=== PATIENT | male | born 1970 | race Caucasian/White ===

== ENCOUNTER 2016-11-26 08:24 | Outpatient (CLI) | payer OTHER ==
[2016-11-26 08:48] LABS: Bilirubin Negative (Negative); Blood, Urine Trace (Negative); Glucose, Urine (Dipstick) Negative (Negative); Leukocyte Negative (Negative); Nitrite Negative (Negative); Protein, Urine (Dipstick) 100 mg/dL (Neg-Trace); Specific Gravity, Urine 1.025 (1.005-1.030)
[2016-11-26 09:04] LABS: Clarity Hazy (Clear)
[2016-11-26 09:05] LABS: Squamous Epithelial 0-3 HPF (0-3)
[2016-11-26 09:06] LABS: Bacteria/HPF Rare-Few HPF (None Seen); Sperm/HPF 3+ HPF (None Seen)
[2016-11-26 09:08] LABS: #Basophils 0.1 thou/uL (0.0-0.2); #Eosinphils 0.5 thou/uL (0.0-0.7); #Monocytes 0.7 thou/uL (0.11-0.59); #Neutrophils 4.9 thou/uL (1.40-6.50); %Basophils 1.6 % (0.0-1.0); %Eosinophils 5.1 % (0.0-10.0); %Lymphocytes 32.5 % (21.0-51.0); %Monocytes 7.8 % (0.0-10.0); Hemoglobin 15.3 g/dL (14.0-18.0); Mean Corpuscular HGB CONC 32.8 g/dL (32.0-36.0); Mean Corpuscular Hemoglobin 28.7 pg (27.0-31.0); Mean Corpuscular Volume 87.6 fl (80.0-94.0); Mean Platelet Volume 7.2 fL (7.4-10.4); Platelet Count 361 thou/uL (130-400); RBC Distribution Width 13.7 % (11.5-14.5); Red Blood Cell (RBC) Count 5.34 mill/uL (4.70-6.10); White Blood Cell (WBC) Count 9.3 thou/uL (4.8-10.8)
[2016-11-26 11:11] LABS: ALT (SGPT) 20 U/L (0-55); AST (SGOT) 17 U/L (5-34); Alkaline Phosphatase 81 U/L (40-150); Anion Gap 12 mmol/L (10-20); BUN (Urea Nitrogen) 11 mg/dL (8.9-20.6); Bilirubin, Total 0.5 mg/dL (0.2-1.2); Calc. Creatinine Clearance 0 mL/min (70-130); Calcium 9.1 mg/dL (7.8-10.44); Carbon Dioxide 26 mmol/L (22-29); Cardiac Risk 5.4 (Less than 4.5); Chloride 107 mmol/L (98-107); Cholesterol 157 mg/dL (< 200 Desired); Estimated GFR-MDRD 77; Globulin 2.4 g/dL (2.4-3.5); Glucose 97 mg/dL (70-105); HDL Cholesterol 29 mg/dL (>60 Neg Risk); LDL Cholesterol, Calculated 110 mg/dL; Potassium 3.7 mmol/L (3.5-5.1); Protein, Total 6.4 g/dL (6.0-8.3); Sodium 141 mmol/L (136-145); Triglycerides 92 mg/dL (Less than 150)
[2016-11-26 16:25] LABS: Iron 104 ug/dL (65-175); Iron Binding Capacity, Total 431 mcg/dL (261-462)
[2016-11-26 16:25] LABS: Reticulocyte Count 1.2 % (0.5-1.5)
== END 2016-11-26 08:25 | disposition home or self-care (01) ==
LOC: MADLAB 08:24
PROVIDERS: ATTEND Family Medicine
DX: Z00.00 Encounter for general adult medical examination without abnormal findings (principal); D60.0 Chronic acquired pure red cell aplasia
CPT/HCPCS: 36415; 80053; 80061; 81001; 82728; 83540; 83550; 85025; 85046

== ENCOUNTER 2019-11-03 02:22 | Emergency (ER) | payer OTHER ==
[2019-11-03] MEDS ORDERED: traMADol HCl 50 MG TAB ONE (02:43)
== END 2019-11-03 02:50 | disposition home or self-care (01) ==
LOC: MADERS 02:22
DX: G89.18 Other acute postprocedural pain (principal); I10 Essential (primary) hypertension; F43.10 Post-traumatic stress disorder, unspecified; F17.210 Nicotine dependence, cigarettes, uncomplicated; Z71.6 Tobacco abuse counseling; Z79.899 Other long term (current) drug therapy
CPT/HCPCS: 99283